=== PATIENT | female | born 1945 | race Hispanic/Latino ===

== ENCOUNTER → 2019-01-07 | Outpatient (CLI) | payer OTHER ==
[~2019-01-07] MED LIST: ACET1TAB12 PO; AMOX-426 PO; LOSA100T58 PO; METF-444 PO
== END | disposition home or self-care (01) ==
LOC: SHCH 13:25
PROVIDERS: ATTEND Internal Medicine Cardiovascular Disease
DX: I08.0 Rheumatic disorders of both mitral and aortic valves (principal)
CPT/HCPCS: 93306

== ENCOUNTER → 2022-12-07 | Outpatient (CLI) | payer OTHER ==
[~2022-12-07] MED LIST changes: -LOSA100T58 PO; +LOSA100T59 PO
== END | disposition home or self-care (01) ==
LOC: SHCH 11:10
PROVIDERS: ATTEND Internal Medicine Cardiovascular Disease
DX: I35.0 Nonrheumatic aortic (valve) stenosis (principal); R00.1 Bradycardia, unspecified
CPT/HCPCS: 93306

== ENCOUNTER → 2023-02-22 | Outpatient (CLI) | payer OTHER ==
[2023-02-22 13:05] LABS: ALBUMIN 3.5 g/dL (3.5-5.0); BILIRUBIN,TOTAL 0.3 mg/dL (0.2-1.0); CREATININE 1.8 mg/dL (0.5-1.5); POTASSIUM 4.3 mmol/L (3.5-5.1); TOTAL PROTEIN, SERUM 7.6 g/dL (6.0-8.3)
== END | disposition home or self-care (01) ==
LOC: LAB 08:58
PROVIDERS: ATTEND Physician Assistant
DX: I10 Essential (primary) hypertension (principal); E78.5 Hyperlipidemia, unspecified
CPT/HCPCS: 36415; 80053; 80061

== ENCOUNTER → 2023-08-17 | Outpatient (CLI) | payer OTHER ==
[2023-08-17 12:30] LABS: CREATININE 1.4 mg/dL (0.5-1.0); POTASSIUM 4.2 mmol/L (3.5-5.1); T4 (THYROXINE) 5.4 ug/dL (4.7-13.3); THYROID STIMULATING HORMONE 2.46 uIU/mL (0.36-3.74)
== END | disposition home or self-care (01) ==
LOC: LAB 11:00
PROVIDERS: ATTEND Physician Assistant
DX: I10 Essential (primary) hypertension (principal)
CPT/HCPCS: 36415; 80048; 84436; 84443; 84479

== ENCOUNTER → 2024-02-23 | Outpatient (CLI) | payer OTHER ==
--- NOTE | 2024-02-23 15:43 | HMCIMG ---
CT CHEST HIGH RESOLUTION (WO) REASON: BRONCHIECTASIS COMPARISON: None TECHNIQUE: Routine CT chest images were obtained using 5 mm sections from thoracic inlet through the lung bases. Additional high-resolution 1 mm sections were obtained at intervals throughout both lungs in inspiration and expiration. FINDINGS: There is chronic-appearing atelectasis in the right middle lobe. There is bronchiectasis in the right middle lobe as well, [id number] in degree. There is a very small focus of acute appearing infiltrate in the right lung apex. This appears alveolar without cavitation. Appearance is consistent with early acute pneumonia. Appearance is nonspecific but tuberculosis could cause this appearance as well. Lungs are otherwise clear. There is normal pulmonary interstitial pattern. There are no blebs or bulla. There is no additional bronchiectasis. There are no pleural effusions. There is no hilar or mediastinal lymphadenopathy. Heart size is normal. There is extensive vascular calcification. Chest wall structures appear normal as do visualized upper abdominal structures. The gallbladder is absent. IMPRESSION: 1. Chronic appearing partial atelectasis of the right middle lobe, there is also moderate to marked bronchiectasis. 2. Mild infiltrate in the right lung apex, appearance is nonspecific, acute pneumonia could cause this appearance, there are no cavitations but the location is appropriate for early tuberculosis as well. 3. Normal-sized heart, there are extensive coronary artery calcifications.
== END | disposition home or self-care (01) ==
LOC: RAH 14:21
PROVIDERS: ATTEND Family Medicine
DX: J98.11 Atelectasis (principal); J47.9 Bronchiectasis, uncomplicated; J18.1 Lobar pneumonia, unspecified organism; I25.10 Atherosclerotic heart disease of native coronary artery without angina pectoris; I70.0 Atherosclerosis of aorta; Z90.49 Acquired absence of other specified parts of digestive tract
CPT/HCPCS: 71250

== ENCOUNTER → 2025-02-07 | Outpatient (CLI) | payer OTHER ==
--- NOTE | 2025-02-07 17:35 | HMCIMG ---
EXAM: CT BRAIN WITHOUT CONTRAST Technique: Helical computed tomography of the head with axial images reconstructed at diagnostic slice thickness and multiplanar reformations in the coronal and sagittal planes; radiation optimization per ALARA with automatic exposure control, patient-size???based kV/mA modulation, and iterative reconstruction. Contrast: No intravenous contrast was administered. Clinical Information: Other amnesia. Findings: Brain parenchyma: Estrada???white matter differentiation is preserved; no acute intraparenchymal hemorrhage or mass effect is identified. White matter: Patchy hypodensities in the bilateral periventricular and subcortical white matter are compatible with chronic small vessel ischemic change. Ventricles and extra-axial spaces: Ventricles are normal in size and configuration for age; no hydrocephalus; no extra-axial fluid collection. Midline structures and basal cisterns: No midline shift; basal cisterns are patent. Brainstem and cerebellum: Unremarkable. Sella/pituitary and pineal region: Unremarkable. Orbits/optic chiasm: No acute orbital abnormality is identified. Temporal bones/internal auditory canals and cerebellopontine angles: Clear. Paranasal sinuses and mastoid air cells: Visualized paranasal sinuses are clear; mastoid air cells are well aerated. Skull and skull base: No acute calvarial or skull base abnormality. Impression: * No prior examinations are available for comparison. * No acute intracranial abnormality is identified, including no acute hemorrhage, mass effect, midline shift, or hydrocephalus. * Chronic microvascular ischemic changes of the cerebral white matter with mild age-related cerebral volume loss. /[place]
== END | disposition home or self-care (01) ==
LOC: RAH 12:15
PROVIDERS: ATTEND Internal Medicine
DX: I67.82 Cerebral ischemia (principal); R41.3 Other amnesia; F03.A4 Unspecified dementia, mild, with anxiety
CPT/HCPCS: 70450